=== PATIENT | male | born 1970 | race Caucasian/White ===

== ENCOUNTER 2021-07-21 15:51 | Inpatient (IN) | payer OTHER ==
[2021-07-21 17:15] VITALS: BMI 22.8
[2021-07-21] MEDS ORDERED: ACETAMINOPHEN 325 MG TABLET (FP) PO PRN (17:18)
[2021-07-21] MEDS ORDERED: NICOTINE 10 MG CARTRIDGE (INHALER) IH PRN (17:18)
[2021-07-21] MEDS ORDERED: P-EPHED 60MG/TRIPROLIDI 2.5MG TABLET PO PRN (17:18)
[2021-07-21] MEDS ORDERED: guaiFENesin 200 MG/10 ML 10 ML UNIT-DOSE CUPS PO PRN (17:18)
[2021-07-21] MEDS ORDERED: LOPERAMIDE HCL 2 MG CAPSULE PO PRN (17:18)
[2021-07-21] MEDS ORDERED: MAGNESIUM HYDROX 2400MG/30ML ORAL SUSPENSION 30 ML CUP PO PRN (17:18)
[2021-07-21] MEDS ORDERED: MAGNESIUM CITRATE 300 ML BOTTLE PO PRN (17:18)
[2021-07-21] MEDS ORDERED: MAG HYDROX/AL HYDROX/SIMETH 30 ML UNIT-DOSE CUP PO PRN (17:18)
[2021-07-21] MEDS: hydrOXYzine PAMOATE 25 MG CAPSULE (FP) PO SCH ×2 (19:07→21:40)
[2021-07-21] MEDS: THIAMINE HCL 100 MG TABLET (FP) PO SCH (21:40)
[2021-07-21] MEDS: MELATONIN 5 MG TABLETS PO SCH (21:40)
[2021-07-22] MEDS: hydrOXYzine PAMOATE 25 MG CAPSULE (FP) PO SCH ×5 (06:43→21:27)
[2021-07-22] MEDS: NICOTINE 7 MG/24 HOURS TOPICAL PATCH TD SCH (09:42)
[2021-07-22] MEDS: PRENATAL VITAMINS W/ FOLIC ACID TABLET (FP) PO SCH (09:43)
[2021-07-22] MEDS: PANTOPRAZOLE 40 MG TABLET PO SCH (09:44)
[2021-07-22 11:39] LABS: CALCIUM 7.7 mg/dL (8.5-10.1)
[2021-07-22 11:40] LABS: ALBUMIN 2.3 g/dl (3.4-5.0); BLOOD UREA NITROGEN 8.1 mg/dL (7-18)
[2021-07-22 11:44] LABS: TOT PROT 6.5 g/dl (6.4-8.2)
[2021-07-22 11:52] LABS: CREATININE 0.8 mg/dL (0.55-1.3)
[2021-07-22 12:07] LABS: HEMATOCRIT 31.1 % (35.4-49); HEMOGLOBIN 9.5 GM/dL (11.7-16.9); MCH 29.9 pg (25.7-33.7); MCHC 30.4 g/dl (32.0-35.9); MEAN CELL VOLUME 98.4 fl (80-96); MEAN PLT VOLUME 11.3 fl (7.5-11.1); PLATELET COUNT 226 10^3/uL (134-434); RBC 3.17 M/mm3 (4.00-5.60); RDW 20.5 % (11.9-15.9)
[2021-07-22 15:05] LABS: EPI CELLS 8 /uL (0-25.1); HYALINE CASTS 7 /uL (0-3.1); PH,URINE 5.5 (5.0-8.0); URINE APPEARANCE TURBID; URINE BACTERIA 2822 /uL (0-1359); URINE BILIRUBIN 3+ (NEGATIVE); URINE COLOR DK YELLOW; URINE GLUCOSE (UA) NEGATIVE (NEGATIVE); URINE KETONE NEGATIVE (NEGATIVE); URINE LEUK ESTERASE 2+ (NEGATIVE); URINE NITRITE POSITIVE (NEGATIVE); URINE PROTEIN 2+ (NEGATIVE); URINE WBC 290 /uL (0-25.8)
[2021-07-22 15:31] LABS: URINE CRYSTALS PRESENT /hpf; URINE RBC 23.2 /uL (0-23.9)
[2021-07-22] MEDS ORDERED: MELATONIN 5 MG TABLETS PO ONE (19:08)
[2021-07-22] MEDS: THIAMINE HCL 100 MG TABLET (FP) PO SCH (21:26)
[2021-07-22] MEDS: MELATONIN 5 MG TABLETS PO SCH (21:27)
[2021-07-22] MEDS ORDERED: SUVOREXANT 5 MG TABLET PO PRN (22:00)
[2021-07-23] MEDS: hydrOXYzine PAMOATE 25 MG CAPSULE (FP) PO SCH ×5 (06:44→22:00)
[2021-07-23] MEDS: NICOTINE 7 MG/24 HOURS TOPICAL PATCH TD SCH ×2 (09:55→09:57)
[2021-07-23] MEDS: PRENATAL VITAMINS W/ FOLIC ACID TABLET (FP) PO SCH (09:55)
[2021-07-23] MEDS: PANTOPRAZOLE 40 MG TABLET PO SCH (09:56)
[2021-07-23] MEDS: THIAMINE HCL 100 MG TABLET (FP) PO SCH (22:00)
[2021-07-23] MEDS: SUVOREXANT 10 MG TABLET PO PRN (23:06)
[2021-07-24] MEDS: hydrOXYzine PAMOATE 25 MG CAPSULE (FP) PO SCH ×5 (06:35→21:37)
[2021-07-24] MEDS ORDERED: PT OWN MED DRAWER 7, Y5N ONE (09:11)
[2021-07-24] MEDS: PANTOPRAZOLE 40 MG TABLET PO SCH (09:51)
[2021-07-24] MEDS: NICOTINE 7 MG/24 HOURS TOPICAL PATCH TD SCH (09:51)
[2021-07-24] MEDS: PRENATAL VITAMINS W/ FOLIC ACID TABLET (FP) PO SCH (09:51)
[2021-07-24] MEDS: THIAMINE HCL 100 MG TABLET (FP) PO SCH (21:35)
[2021-07-24] MEDS: SUVOREXANT 10 MG TABLET PO PRN (21:35)
[2021-07-24] MEDS ORDERED: SUVOREXANT 5 MG TABLET PO PRN (22:00)
[2021-07-25] MEDS: hydrOXYzine PAMOATE 25 MG CAPSULE (FP) PO SCH ×2 (07:00→09:10)
[2021-07-25] MEDS: NICOTINE 7 MG/24 HOURS TOPICAL PATCH TD SCH (09:08)
[2021-07-25] MEDS: PRENATAL VITAMINS W/ FOLIC ACID TABLET (FP) PO SCH (09:09)
[2021-07-25] MEDS: PANTOPRAZOLE 40 MG TABLET PO SCH (09:09)
[2021-07-25] MEDS ORDERED: hydrOXYzine PAMOATE 25 MG CAPSULE (FP) PO PRN (09:17)
[2021-07-25 13:46] LABS: HEMOGLOBIN 8.8 GM/dL (11.7-16.9); MCH 30.8 pg (25.7-33.7); MCHC 30.5 g/dl (32.0-35.9); MEAN CELL VOLUME 101.1 fl (80-96); MEAN PLT VOLUME 11.2 fl (7.5-11.1); PLATELET COUNT 225 10^3/uL (134-434); RBC 2.86 M/mm3 (4.00-5.60); RDW 21.7 % (11.9-15.9)
[2021-07-25 18:28] LABS: ANISOCYTOSIS 2+; MACROCYTOSIS 2+; OVALOCYTE 1+; PLATELET ESTIMATE NORMAL; TARGET CELLS 2+
[2021-07-25] MEDS: SUVOREXANT 10 MG TABLET PO PRN (21:20)
[2021-07-25] MEDS: IBUPROFEN 400 MG TABLET (FP) PO PRN (21:21)
[2021-07-25] MEDS: THIAMINE HCL 100 MG TABLET (FP) PO SCH (21:21)
[2021-07-25] MEDS: METHOCARBAMOL 500 MG TABLET PO PRN (22:19)
[2021-07-26] MEDS: IBUPROFEN 400 MG TABLET (FP) PO PRN (06:23)
[2021-07-26] MEDS: NICOTINE 7 MG/24 HOURS TOPICAL PATCH TD SCH (09:55)
[2021-07-26] MEDS: PANTOPRAZOLE 40 MG TABLET PO SCH (09:56)
[2021-07-26] MEDS: PRENATAL VITAMINS W/ FOLIC ACID TABLET (FP) PO SCH (09:56)
[2021-07-26] MEDS: METHOCARBAMOL 500 MG TABLET PO PRN ×2 (09:57→22:31)
[2021-07-26 17:21] LABS: BILIRUBIN,TOTAL 3.1 mg/dL (0.2-1); BLOOD UREA NITROGEN 10.6 mg/dL (7-18); CALCIUM 7.8 mg/dL (8.5-10.1); CREATININE 0.7 mg/dL (0.55-1.3); TOT PROT 6.6 g/dl (6.4-8.2)
[2021-07-26] MEDS: SUVOREXANT 10 MG TABLET PO PRN (22:32)
[2021-07-26] MEDS: THIAMINE HCL 100 MG TABLET (FP) PO SCH (22:32)
[2021-07-27] MEDS: PANTOPRAZOLE 40 MG TABLET PO SCH (09:47)
[2021-07-27] MEDS: PRENATAL VITAMINS W/ FOLIC ACID TABLET (FP) PO SCH (09:48)
[2021-07-27] MEDS: NICOTINE 7 MG/24 HOURS TOPICAL PATCH TD SCH (09:50)
[2021-07-27] MEDS ORDERED: FERROUS SO4 325 MG TABLET (FP) PO SCH (10:00)
[2021-07-27] MEDS: FERROUS SO4 325 MG TABLET (FP) PO SCH (12:01)
[2021-07-28] MEDS ORDERED: IBUPROFEN 400 MG TABLET (FP) PO PRN (01:07)
[2021-07-28] MEDS: FERROUS SO4 325 MG TABLET (FP) PO SCH ×3 (01:15→22:03)
[2021-07-28] MEDS: METHOCARBAMOL 500 MG TABLET PO PRN ×2 (01:15→22:29)
[2021-07-28] MEDS: THIAMINE HCL 100 MG TABLET (FP) PO SCH ×2 (01:15→22:03)
[2021-07-28] MEDS: SUVOREXANT 10 MG TABLET PO PRN (01:15)
[2021-07-28] MEDS ORDERED: PT OWN MED DRAWER 7, Y5N ONE (08:49)
[2021-07-28] MEDS: NICOTINE 7 MG/24 HOURS TOPICAL PATCH TD SCH (09:32)
[2021-07-28] MEDS: PANTOPRAZOLE 40 MG TABLET PO SCH (09:32)
[2021-07-28] MEDS: PRENATAL VITAMINS W/ FOLIC ACID TABLET (FP) PO SCH (09:32)
[2021-07-28] MEDS ORDERED: SUVOREXANT 10 MG TABLET PO PRN (22:00)
[2021-07-29 06:48] VITALS: BP 108/82; PULSE 93; TEMP 97.3
== END 2021-07-29 09:40 | disposition home or self-care (01) | DRG 772 ==
LOC: YASAS 15:51 → Y3E 17:25 → Y6N 18:00 → Y3E 18:02
PROVIDERS: ADMIT Allergy & Immunology; ATTEND Allergy & Immunology
PROC: HZ42ZZZ Group Counseling for Substance Abuse Treatment, Cognitive-Behavioral (ICD-10-PCS; principal; 2021-07-21)
DX: F10.20 Alcohol dependence, uncomplicated (principal); F17.210 Nicotine dependence, cigarettes, uncomplicated; F19.282 Other psychoactive substance dependence with psychoactive substance-induced sleep disorder; F19.24 Other psychoactive substance dependence with psychoactive substance-induced mood disorder; F32.A Depression, unspecified; F43.10 Post-traumatic stress disorder, unspecified; D64.9 Anemia, unspecified; R74.8 Abnormal levels of other serum enzymes; R60.0 Localized edema; Z87.440 Personal history of urinary (tract) infections; Z87.19 Personal history of other diseases of the digestive system; Z59.01 Sheltered homelessness
CPT/HCPCS: 36415; 71046-TC-FY; 74177-TC; 76705-TC; 80053; 81003; 83735; 83880; 84484; 85025; 85027; 85610; 85730; 86780; 86803; 87086; 87186; 87811; 93005; 93010; 99285-25; C9803; Q9967; U0003; U0005

== ENCOUNTER 2021-07-27 10:48 | Emergency (ER) | payer OTHER ==
[2021-07-27 11:08] VITALS: TEMP 98; BMI 23.6
[2021-07-27] MEDS ORDERED: IBUPROFEN 600 MG TABLET (FP) PO ONE ×5 (12:37→19:53)
[2021-07-27 14:09] VITALS: BP 114/74; PULSE 72
[2021-07-27 14:15] LABS: PH,URINE 5.5 (5.0-8.0); URINE APPEARANCE CLEAR; URINE BILIRUBIN 1+ (NEGATIVE); URINE COLOR DK YELLOW; URINE GLUCOSE (UA) NEGATIVE (NEGATIVE); URINE KETONE NEGATIVE (NEGATIVE); URINE LEUK ESTERASE NEGATIVE (NEGATIVE); URINE NITRITE NEGATIVE (NEGATIVE); URINE PROTEIN NEGATIVE (NEGATIVE)
[2021-07-27 14:17] LABS: BASO % 2.3 % (0-2.0); EOS % 0.6 % (0-4.5); HEMATOCRIT 28.1 % (35.4-49); HEMOGLOBIN 8.5 GM/dL (11.7-16.9); LYMPH % 16.9 % (8-40); MCH 30.3 pg (25.7-33.7); MCHC 30.1 g/dl (32.0-35.9); MEAN CELL VOLUME 100.4 fl (80-96); MEAN PLT VOLUME 10.8 fl (7.5-11.1); MONO % 8.5 % (3.8-10.2); NEUT % 71.7 % (42.8-82.8); PLATELET COUNT 263 10^3/uL (134-434); RBC 2.79 M/mm3 (4.00-5.60); RDW 19.6 % (11.9-15.9); WHITE BLOOD COUNT 12.6 K/mm3 (4.0-10.0)
[2021-07-27 14:19] LABS: INR 1.19 (0.83-1.09)
[2021-07-27 14:22] LABS: ACTIVATED PTT 32.9 SECONDS (25.2-36.5)
[2021-07-27 15:00] LABS: ALBUMIN 1.9 g/dl (3.4-5.0); ALK PHOS 222 U/L (45-117); ANION GAP 6 MMOL/L (8-16); BILIRUBIN,TOTAL 2.3 mg/dL (0.2-1); BLOOD UREA NITROGEN 8.7 mg/dL (7-18); CALCIUM 7.7 mg/dL (8.5-10.1); CHLORIDE 107 mmol/L (98-107); CO2 25 mmol/L (21-32); CREATININE 0.7 mg/dL (0.55-1.3); GLUCOSE,RANDOM 87 mg/dL (74-106); N-TERMINAL BNP 890.3 pg/ml (5-125); SGOT/AST 225 U/L (15-37); SGPT/ALT 78 U/L (13-61); SODIUM 137 mmol/L (136-145); TOT PROT 6.5 g/dl (6.4-8.2)
[2021-07-27] MEDS ORDERED: SODIUM CHLORIDE 0.9% 500 ML INFUS.BAG IV ONE (15:22)
[2021-07-27 16:29] LABS: MAGNESIUM 1.8 mg/dL (1.8-2.4)
[2021-07-27] MEDS ORDERED: FUROSEMIDE 20 MG TABLET (FP) PO ONE (20:31)
[2021-07-27] MEDS ORDERED: FUROSEMIDE 40 MG TABLET (FP) ONE (21:00)
== END 2021-07-28 00:36 | disposition home or self-care (01) ==
LOC: JER 10:48
DX: R22.43 Localized swelling, mass and lump, lower limb, bilateral (principal)
CPT/HCPCS: 36415; 71046-TC-FY; 74177-TC; 76705-TC; 80053; 81003; 83735; 83880; 84484; 85025; 85610; 85730; 87086; 93005; 93010; 99285-25; Q9967